=== PATIENT | female | born 1965 | race Caucasian/White ===

== ENCOUNTER 2017-06-09 14:30 | Inpatient (IN) ==
--- NOTE | 2017-06-09 15:05 | CT Report ---
CT abdomen pelvis wo con Indication: Kidney pain for months. Comparison: None. Technique: CT of the abdomen and pelvis was performed without administration of intravenous contrast. The CT examination was performed using one or more of the following dose reduction techniques: Automatic exposure control, adjustment of the mA and kV according to patient size, use of acute or iterative reconstruction techniques. Findings: Complete evaluation of solid organs, vascular structures, and bowel wall is not possible secondary to lack of intravenous contrast. Lower chest: No acute findings are noted within the lower chest. Liver: The liver demonstrates no evidence of focal hepatic mass or evidence of acute pathology. Gallbladder: Speckled foci of increased attenuation throughout the lumen of the gallbladder suggests partially calcified gallstones. No findings are present to suggest acute cholecystitis. Spleen: Spleen demonstrates no significant abnormality. Pancreas: Pancreas demonstrates no significant abnormality. Adrenal glands: The adrenal glands demonstrate no significant abnormalities. Kidneys: Kidneys demonstrate no significant abnormality. Aorta: The noncontrast enhanced appearance of the aorta is unremarkable. Inferior vena cava: Inferior vena cava is normal in appearance. Lymph nodes: Enlarged inguinal lymph nodes are noted bilaterally. Additionally, few sidewall nodes of the pelvis appear borderline in size to minimally enlarged measuring up to 8 to 9 mm in short axis dimension. Stomach and bowel: Stomach, duodenum, and small bowel demonstrate no specific abnormality. The appendix is normal. The sigmoid colon demonstrates wall thickening in the lower pelvis with a moderately large amount of periserosal fat stranding associated. His particular region of bowel is difficult to fully evaluate secondary to lack of intravenous contrast and there is a suggested mass within the pelvis possibly along the posterior wall of sigmoid colon. This is estimated to measure 7.3 cm in AP dimension, 6.3 cm in transverse dimension, and up to 6.5 cm in craniocaudal dimension. This appears to efface the superior wall of the bladder. Extensive inflammatory stranding extends into the anterior rectus musculature. Small bubbles of air are noted interposed between the rectus muscles in the region of contrast stasis and herniation of fat. Its difficult to ascertain whether this represents nonopacified loops of bowel versus other entity such as possible abscess or perforation. Intrapelvic contents: The urinary bladder is decompressed and exhibits mass effect from the above described possible mass versus phlegmon or enlargement of the bowel. Osseous structures: The imaged osseous structures of the lumbar spine, pelvis, and proximal femurs demonstrate no acute findings. Soft tissues and musculature: In addition to the diastases of the abdominal wall musculature as detailed above, there is fat stranding along the anterior margin of each rectus muscle and the left rectus muscle is enlarged and thickened measuring up to 3.2 cm in AP dimension. Impression: 1. An aggressive process is demonstrated within the lower abdomen/upper pelvis in close proximity to the sigmoid colon. There appears to be periserosal fat stranding as well as possible solid mass or phlegmon in the region of the lower sigmoid colon. This suggested area of mass effect effaces the superior margin of the urinary bladder. Bladder wall thickening additionally is not excluded. Extensive fat stranding as well as thickening of the left rectus musculature is present. Some small bubbles of air present within the diastases of the abdominal wall and is difficult to ascertain whether this represents nonopacified bowel loops or whether this represents possible extraluminal/free intraperitoneal air. Differential considerations for the appearance of this region could include acute diverticulitis with phlegmon/abscess formation and involvement of the rectus musculature, as well as neoplasm. Bowel perforation cannot be excluded. Evaluation is significantly limited by lack of intravenous and oral contrast. Repeat study utilizing intravenous contrast, also allowing appropriate time for contrast to traverse large bowel is recommended. Alternatively, rectal contrast could be administered in addition to IV contrast. 06/09/2017 2:56 PM PROCEDURE INTERPRETED AT [facility] DEPARTMENT OF RADIOLOGY Final Report Signed by: Dr. Ray Hawkins
[2017-06-09] MEDS ORDERED: SODIUM CHLORIDE 0.9% 500 ML IV STA (15:29)
--- NOTE | 2017-06-09 15:36 | Emergency Department Note ---
More Kraus Hilary, am scribing for, and in the presence of, Chris Jaramillo MD 15:31. Ella Kraus Phillip K, MD, personally performed the services described in this documentation, ascribed by Belia Aguero in my presence, and it is both accurate and complete 536 . Arrival - Arrival Chief Complaint: Non-Specific Stated Complaint: sent by dr. whipple. kidney scan ED Nursing Triage Note: Pt c/o "kidney Pain" for months now and had a U/S yesterday. States she was told by Dr Whipple to come into the ER for a CT scan. Mode of Arrival: Ambulatory Limitations: No Limitations Source: Patient, RN Notes Reviewed Time Seen by Provider: 06/09/17 15:19 - History of Present Illness HPI Narrative: Pt is a 51 y/o female presenting to the ED with c/o kidney pain which onset weeks ago. She reports having an US yesterday and was told by Dr. Whipple to come to the ED for a CT scan. Pt confirms lower abdominal pain, nausea and blood in her bowels for 2-3 days which is resolved now but denies vomiting. No other complaints or problems stated in the ED. patient also reports a 35 pound weight loss over the last year. Her last bowel movement was Wednesday. Patient also reports some blood in her bowel movement for 2-3 days which is since resolved. She was noted to have a small amount of hydronephrosis on the left breast sonogram yesterday was referred here for a CAT scan which showed a large mass around the sigmoid colon. This mass does efface the bladder. Patient did have fever one day over the last 2 weeks but denies any recently. Patient has never had a colonoscope. Past medical history is unremarkable Onset (ago): week(s) Consistency: constant Severity: mild Severity scale (1-10): 1 Quality: sharp Allergies/Adverse Reactions: Allergies Allergy/AdvReac Type Severity Reaction Status Date / Time phenazopyridine Allergy RASH Verified 06/09/17 14:32 [From Pyridium] Home Medications: Home Medications Medication Instructions Recorded Confirmed Type Amoxicillin/Potassium Clav [Amox 1 each PO BID W/MEALS 06/09/17 06/09/17 History Tr-K Clv 500-125 mg Tab] Ferrous Sulfate Tab [Feosol 325 mg PO DAILY 06/09/17 06/09/17 History Original Tab] Lactobacillus Acidophilus 1 each PO DAILY 06/09/17 06/09/17 History [Acidophilus Lactobacilli] Oxybutynin Xl [Ditropan Xl] 10 mg PO DAILY 06/09/17 06/09/17 History Review of System - Review of System 12 point system: reviewed and no additional remarkable complaints except as stated - Review of System Constitutional: Present: weight loss. Absent: fever Gastrointestinal: Present: abdominal pain, hematochezia Medical,Surgical,& Family Hx - Social History Smoking Status: Never smoker Exam Vital Signs: Vital Signs Temperature 97.2 F L 06/09/17 14:30 Pulse Rate 94 H 06/09/17 14:30 Respiratory Rate 16 06/09/17 14:30 Blood Pressure 180/99 06/09/17 14:30 O2 Sat by Pulse Oximetry 96 06/09/17 14:30 - General General appearance: alert, in no apparent distress - Head Head exam: Present: atraumatic, normocephalic - Eye Eye exam: Present: normal appearance, PERRL, EOMI - ENT ENT exam: Present: mucous membranes moist, TM's normal bilaterally. Absent: mucous membranes dry - Neck Neck exam: Present: full ROM, trachea midline. Absent: tenderness - Chest Chest inspection: Present: symmetric chest wall rise. Absent: tenderness - Respiratory Respiratory exam: Present: normal lung sounds bilaterally. Absent: respiratory distress - Cardiovascular Cardiovascular exam: Present: regular rate, normal rhythm, normal heart sounds. Absent: murmur, rubs, gallop - Abdominal Exam Abdominal exam: Present: soft, tenderness (LLQ ), hypoactive bowel sounds, mass (Left lower quadrant). Absent: distention - Rectal Exam Rectal exam: Present: heme (-) stool. Absent: mass - Extremities Exam Extremities exam: Present: full ROM. Absent: tenderness, pedal edema - Back Exam Back exam: Present: full ROM. Absent: tenderness - Neurological Exam Neurological exam: Present: alert, oriented X3, CN II-XII intact. Absent: motor sensory deficit - Psychiatric Psychiatric exam: Present: normal affect, normal mood - Skin Skin exam: Present: warm, dry, intact, normal color. Absent: rash Results - Labs Lab Results: I have reviewed the patients labs (Labs are presently pending) - Diagnostic Findings Procedure: CT Abdomen and Pelvis: report reviewed by me (1. An aggressive process is demonstrated within the lower abdomen/upper pelvis in close proximity to the sigmoid colon. There appears to be periserosal fat stranding as well as possible solid mass or phlegmon in the region of the lower sigmoid colon. This suggested area of mass effect effaces cole superior margin of the urinary bladder. Bladder wall thickening of the left rectus musculature is present. Some small bubbles of air present within the diastases of the abdominal wall and is difficult to ascertain whether this represents nonopacified bowel loops or whether this represents possible extraluminal/free intraperitoneal air. Differential considerations for the appearance of this region could include acute diverticulitis with phlegmon/abscess formation and involvement of the rectus musculature, as well as neoplasm. Bowel perforation cannot be excluded. Evaluation is significantly limited by lack of intravenous and oral contrast. ) Disposition Clinical Impression: Abdominal mass, left lower quadrant, Weight loss Case discussed with: patient, patient's family Disposition: Still a Patient Condition: Guarded Additional Instructions: Admit to the hospitalist.
--- NOTE | 2017-06-09 15:54 | XRay Report ---
XR chest 1V portable Indication: Abdominal pain Comparison: None. Technique: Portable AP chest was performed. Findings: Heart size is normal. Pulmonary vasculature appears within normal limits. No significant abnormality of the mediastinal contours demonstrated. Lungs are clear. Bones and soft tissues demonstrate no significant abnormalities. Impression: 1. No evidence of acute pathology. 06/09/2017 3:51 PM PROCEDURE INTERPRETED AT [facility] DEPARTMENT OF RADIOLOGY Final Report Signed by: Dr. Ray Hawkins
--- NOTE | 2017-06-09 15:56 | EKG Report ---
Stationary ECG Study [facility] ER Test Date: 06/09/2017 3:54 PM Pat Name: ADRIAN GARCIA Department: Room: Gender: F Sales Marketing Director: : 1965 Requested by: Chris Egan Order Number: [id number] Reading MD: ROLANDO MARIE Intervals [place] Rate: 96 P: 40 AK: 140 QRS: 83 QRSD: 109 T: 49 QT: 362 QTc: 416 Interpretive Statements SINUS RHYTHM RIGHT AXIS DEVIATION Electronically Signed On 06-09-17 17:04:39 CDT by ROLANDO MARIE [email or web address]
[2017-06-09 15:58] LABS: Basophils # 0.1 10*3/uL (0.0-0.2); Basophils % 0.5 % (0.0-0.8); Eosinophils # 0.1 10*3/uL (0.0-0.87); Eosinophils % 0.9 % (0.00-10.9); Hematocrit 34.9 VOL% (35.7-47.0); Hemoglobin 11.1 GM/DL (12.0-16.0); Immature Granulocytes % 0.4 %; Immature Granulocytes Absolute 0.05 #; Lymphocytes # 2.8 10*3/uL (1.4-4.0); Lymphocytes % 22.4 % (21.3-54.2); Mean Corpuscular HGB Conc 31.8 GM/DL (32-36); Mean Corpuscular Hemoglobin 24 PG (27-34); Mean Corpuscular Volume 75.4 FL (87-102); Mean Platelet Volume 8.9 FL (9.6-12.0); Monocytes # 1.3 10*3/uL (0.11-0.8); Monocytes % 10.1 % (1.7-12.7); Neutrophils # 8.1 10*3/uL (1.4-7.4); Neutrophils % 65.7 % (38.7-73.9); Platelet Count 458 T/CUMM (130-400); Red Blood Count 4.63 MC/CUMM (3.8-5.5); Red Cell Distribution Width 14.7 % (9.3-17.3); White Blood Count 12.3 T/CUMM (4-12)
[2017-06-09 16:11] LABS: Bilirubin,Urine Negative (Negative); Blood, Urine Large mg/dL (Negative); Glucose,Urine (UA) Negative (Negative); Ketones,Urine Negative (Negative); Nitrite,Urine Negative (Negative); Protein,Urine 100 MG/DL; RBC,Urine 48 /HPF (0-4); Squamous Epithelial Cell,Urine Occasional /HPF (0-10); Urine Color Yellow (Yellow); Urine Specific Gravity 1.005 (1.001-1.035); WBC,Urine 1387 /HPF (0-6)
[2017-06-09 16:12] LABS: Apearance,Urine CLOUDY (Clear); Urine Urobilinogen 0.2 EU/DL (0.2-1.0)
[2017-06-09 16:30] LABS: Alanine Aminotransferase 18 U/L (13-56); Albumin 2.6 G/DL (3.4-5.0); Alkaline Phosphatase 69 U/L (45-117); Aspartate Amino Transferase 12 U/L (0-37); Bilirubin,Total < 0.39 MG/DL (0.2-1.0); Blood Urea Nitrogen 6 MG/DL (7-18); Glucose 151 MG/DL (74-106); Magnesium 2.1 MG/DL (1.8-2.4); Potassium 3.2 MMOL/L (3.5-5.1); Sodium 136 MMOL/L (136-145); Total Protein 7.7 G/DL (6.4-8.3)
--- NOTE | 2017-06-09 16:42 | Hospitalist History & Physical ---
<Jhonathan Peraza - Last Filed: 06/09/17 16:54> Assessment and Plan (1) Left lower quadrant abdominal mass Status: Acute Assessment and plan: Admit to med surg. IV fluids. prn pain meds. Consult GI to evaluate ( diverticulitis vs neoplasm). Consult surgery. Current Visit: Yes (2) Urinary tract infection Status: Acute Assessment and plan: IVF. Start IV antibotics empirically. Await culture. Current Visit: Yes (3) Weight loss Status: Acute Assessment and plan: Consult nutrition. Weight loss possibly secondary to mass. Current Visit: Yes History of Present Illness Chief complaint: abdominal pain / referral from Dr. Echevarria History of present illness: Ms. Luevano is a 51 year old white female w that presents to the ED today as a referral from Dr. Echevarria's office. Pt. saw Dr. Echevarria in clinic for abdominal pain and underwent an US that revealed 'mild dilation of the left renal pelvis could represent mild hydronephrosis'. Pt. was sent over for further evaluation. She is accompanied by her fiance' who is present at the bedside. Pt. states that for the last 2 weeks she has experienced kidney pain. She reports a fever with chills, associating nausea but no vomiting. She denies chest pain, shortness of breath, cough, weakness, or night sweats. She states that she has been having discharge similar to "skin" during urination with blood present. She also reported a few episodes of blood during the urine. Pt. additionally adds that she has lost 15 lbs in 3 months and 35 lb weight loss over 1 yr. Pt. denies ever having a colonoscopy. CT scan today revealed a large mass around the sigmoid colon that effaces the bladder. Labs revealed WBC of 12.3, h&h 11.1 and 34.9, and UA revealed a UTI. Pt's case has been discussed with Dr. Jaramillo and Dr. Rubio. Pt. will be admitted to the hospitalist service for further evaluation and treatment. Home meds have been reconciled and review. Home Medications Medication Instructions Recorded Confirmed Type Amoxicillin/Potassium Clav [Amox 1 each PO BID W/MEALS 06/09/17 06/09/17 History Tr-K Clv 500-125 mg Tab] Ferrous Sulfate Tab [Feosol 325 mg PO DAILY 06/09/17 06/09/17 History Original Tab] Lactobacillus Acidophilus 1 each PO DAILY 06/09/17 06/09/17 History [Acidophilus Lactobacilli] Oxybutynin Xl [Ditropan Xl] 10 mg PO DAILY 06/09/17 06/09/17 History Allergies Allergy/AdvReac Type Severity Reaction Status Date / Time phenazopyridine Allergy RASH Verified 06/09/17 14:32 [From Pyridium] Medical,Surgical,& Family Hx - Family History Family History: Reports;: Family Cancer (colon/brain), Family Stroke - Social History Smoking Status: Never smoker Have you smoked in the last 12 months: No Frequency of Alcohol Use: None Type of Drug Use: None Marital Status: Lives With:: Significant Other Functional capacity: independent ambulation - Constitutional Constitutional: Present: chills, fever(s), weight loss (35 lbs in one yr). Absent: night sweats - EENT Eyes: Present: requires corrective lense. Absent: blurry vision Ears: Absent: decreased hearing Nose, mouth and throat: Absent: headache(s) - Cardiovascular Cardiovascular: Absent: dyspnea on exertion, edema - Respiratory Respiratory: Absent: dyspnea - Gastrointestinal Gastrointestinal: Present: abdominal pain, nausea. Absent: vomiting - Genitourinary Genitourinary: Present: hematuria, vaginal discharge ("similar to skin") - Musculoskeletal Musculoskeletal: Absent: back pain - Neurological Neurological: Absent: confusion, dizziness - Psychiatric Psychiatric: Absent: anxiety, depression Exam - Constitutional Vitals: Period Temp Pulse Resp BP Sys/Ng Pulse Ox Last 24 Hr 97.2 F-97.2 F 94-94 16-16 180-180/99-99 96 General appearance: no acute distress, over weight - Head Head exam: Present: normal inspection, normocephalic - Eye Eye exam: Present: EOMI Pupils: Present: MERRY - ENT ENT exam: Present: normal exam - Neck Neck exam: Present: normal inspection - Respiratory Respiratory exam: Present: clear to auscultation bilaterally. Absent: wheezes - Cardiovascular Cardiovascular exam: Present: tachycardia - GI/Abdominal GI/Abdominal exam: Present: normal bowel sounds, soft. Absent: tenderness - Extremities Exam Extremities exam: Present: normal capillary refill, full ROM. Absent: edema - Back Exam Back exam: Present: normal inspection - Neurological Exam Neurological exam: Present: alert, oriented X3 - Psychiatric Psychiatric exam: Present: normal affect, normal mood - Skin Skin exam: Present: normal color, warm, dry Results - Labs CBC & BMP: 06/09/17 15:36 06/09/17 15:36 Lab Results: I have reviewed the past 24 hour labs <Joby Rubio - Last Filed: 06/09/17 18:57> History of Present Illness History of present illness: Ms. Luevano is a 51 year old female Exam - Constitutional Vitals: Period Temp Pulse Resp BP Sys/Ng Pulse Ox Last 24 Hr 97.2 F-99.1 F 91-101 16-20 147-180/89-99 96-98 Results - Labs CBC & BMP: 06/09/17 15:36 06/09/17 15:36 - Impressions Patient seen and examined. I have reviewed the H&P by ROLAN Peraza, and I agree with the documentation. Briefly, patient is a 51 yo pleasant female who presents to the ED as a referral from Dr. Echevarria's office. US was done, and it showed possible hydronephrosis. Patient states that she has been having crampy intermittent LLQ pain for the past 2 weeks along with accompanying nasuea, decreased PO intake, and fevers of 100 degrees. She also notes some bloody stools last week but denies any melena or constipation. Abdominal pain is not associated with movement/urination/defecation/eating. She endorses an unintentional weight loss of 15 pounds in the past 3 months. She has not had a colonoscopy. She notes some diarrhea for the past 2 days. She attributes it to the use with augmentin. She states that she is being treated for a UTI. Main symptoms are urinary frequency and hematuria. She states that several weeks ago, she was treated with bactrim. Vitals reviewed. BP is elevated. Abdominal exam is unremarkable. CVA tenderness is absent. Labs reviewed. CTAP without contrast shows possible sigmoid mass with bladder involvement. Active Issues: 1. Acute LLQ pain 2. Possible sigmoid mass 3. Leukocytosis, likely 2nd to UTI 4. Possible UA: will treat for UTI 5. Microcytosis, mild 6. Hypokalemia 7. Bloody stools 8. Elevated blood pressure: patient denies history of HTN Plan: repeat CTAP with contrast; agree with consulting GI and surgery; treat for possible UTI; obtain iron studies/tsh/b12/replete K and monitor/PPI/DVT prophalaxis. Plan of care may be modified as more information becomes available.
[2017-06-09] MEDS ORDERED: DOCUSATE SODIUM 100 MG CAPSULE PO PRN (17:45)
[2017-06-09] MEDS: SODIUM CHLORIDE 0.9% 1,000 ML IV SCH (18:12)
[2017-06-09] MEDS: cefTRIAXone 1,000 MG in SODIUM CHLORIDE 0.9% 100 ML IV SCH (18:21)
[2017-06-09] MEDS: POTASSIUM CHLORIDE 20 MEQ TABLET PO PRN ×3 (18:22→23:34)
--- NOTE | 2017-06-09 21:10 | General Surgery Consult Note ---
Assessment and Plan (1) Left lower quadrant abdominal mass Status: Acute Assessment and plan: This likely represents diverticulitis. It is difficult to discern without CT with contrast whether there is any mass features or just phlegmon and diverticulitis. The patient has never had a colonoscopy. She does not have any significant family history of colon cancer. A CT scan with contrast would certainly be helpful to confirm the diagnosis. The patient has pneumaturia and recurrent urinary tract infections are concerning for the possibility of colovesicular fistula. I will add Flagyl to her antibiotic regimen and continue to follow her in the hospital and follow-up the results of her CT scan tomorrow. Current Visit: Yes History of Present Illness Chief complaint: Abdominal pain History of present illness: Ms. Luevano is a 51 year old female who presents to the hospital with left lower quadrant abdominal pain for 2 weeks that has been coming and going. She denies any history of diverticulitis and thought she was having a kidney stone. She reports recurrent urinary tract infections and pneumaturia for the past week. She also states that her urine turned very dark at times intermittently. She has had a hysterectomy in the past. She feels much better since being admitted to the ER. She had a leukocytosis around 12,[address] scan which was a noncontrasted study showed significant inflammatory changes in the area of the sigmoid colon extending into a ventral hernia defect with some air bubbles that appear to be outside of the colon. There is no massive free air. Again the patient feels much better after initial treatment in the ER and the floor. She is on Rocephin Home Medications Medication Instructions Recorded Confirmed Type Amoxicillin/Potassium Clav [Amox 1 each PO BID W/MEALS 06/09/17 06/09/17 History Tr-K Clv 500-125 mg Tab] Ferrous Sulfate Tab [Feosol 325 mg PO DAILY 06/09/17 06/09/17 History Original Tab] Lactobacillus Acidophilus 1 each PO DAILY 06/09/17 06/09/17 History [Acidophilus Lactobacilli] Oxybutynin Xl [Ditropan Xl] 10 mg PO DAILY 06/09/17 06/09/17 History Allergies Allergy/AdvReac Type Severity Reaction Status Date / Time phenazopyridine Allergy RASH Verified 06/09/17 14:32 [From Pyridium] Medical,Surgical,& Family Hx - Medical History Psychological: No history of: Anxiety Disorders, ADHD, Behavior Problems, Bipolar Disorder, Depression, Previous Suicide Attempt, Psychiatric/Substance Abuse Tx, Schizophrenia, Violent Behavior, Psychiatric Problems Genitourinary: History of: Kidney Stones, Problems (urinary frequency) - Family History Family History: Reports;: Family Cancer (colon/brain), Family Stroke - Social History Smoking Status: Never smoker Frequency of Alcohol Use: None Type of Drug Use: None - Constitutional Constitutional: Present: as per HPI - EENT Nose, mouth and throat: Present: as per HPI - Cardiovascular Cardiovascular: Present: as per HPI - Respiratory Respiratory: Present: as per HPI - Gastrointestinal Gastrointestinal: Present: as per HPI - Genitourinary Genitourinary: Present: as per HPI - Musculoskeletal Musculoskeletal: Present: as per HPI - Neurological Neurological: Present: as per HPI - Endocrine Endocrine: Present: as per HPI Hematologic/Lymphatic: Present: as per HPI Exam - Constitutional Vitals: Period Temp Pulse Resp BP Sys/Ng Pulse Ox Last 24 Hr 97.2 F-99.1 F 86-101 16-20 146-180/82-99 94-98 General appearance: no acute distress, over weight - Head Head exam: Present: normal inspection, normocephalic - Eye Eye exam: Present: EOMI. Absent: scleral icterus Pupils: Present: MERRY - ENT ENT exam: Present: normal exam Mouth exam: Present: normal external inspection, normal voice - Neck Neck exam: Present: normal inspection, trachea midline - Respiratory Respiratory exam: Present: clear to auscultation bilaterally. Absent: accessory muscle use, chest wall tenderness - Cardiovascular Cardiovascular exam: Present: RRR. Absent: systolic murmur, tachycardia - GI/Abdominal GI/Abdominal exam: Present: mass (There is a palpable presumed intra-abdominal mass in the left lower quadrant suprapubic area.), tenderness (There is tenderness in the left lower quadrant and suprapubic region. No overlying skin changes.), soft. Absent: rebound - Extremities Exam Extremities exam: Present: normal inspection, normal capillary refill - Back Exam Back exam: Present: normal inspection - Neurological Exam Neurological exam: Present: alert, oriented X3 Speech: Present: normal - Skin Skin exam: Present: normal color, warm Results - Labs CBC & BMP: 06/09/17 15:36 06/09/17 15:36
[2017-06-09] MEDS: metroNIDAZOLE INJ 500 MG in PREMIX 1 EACH IV SCH (21:29)
[2017-06-09] MEDS ORDERED: FLUCONAZOLE 150 MG TABLET PO ONE (22:53)
[2017-06-09] MEDS: MICONAZOLE 2% VAG CREAM 45 GM TUBE VAG SCH (23:59)
[2017-06-10] MEDS: POTASSIUM CHLORIDE 20 MEQ TABLET PO PRN (01:56)
[2017-06-10] MEDS: ONDANSETRON 4 MG/2 ML VIAL IV PRN (03:49)
[2017-06-10] MEDS: metroNIDAZOLE INJ 500 MG in PREMIX 1 EACH IV SCH ×3 (04:30→20:51)
--- NOTE | 2017-06-10 06:42 | General Surgery Progress Note ---
Assessment and Plan (1) Left lower quadrant abdominal mass Status: Acute Assessment and plan: Patient continues to do well. Follow-up CT scan today Current Visit: Yes Subjective Patient reports: Present: no new complaints, feels better, diarrhea, afebrile. Absent: blood in stool Exam - Constitutional Vitals: Period Temp Pulse Resp BP Sys/Ng Pulse Ox Last 24 Hr 97.2 F-99.1 F 85-110 16-20 132-180/72-107 94-98 General appearance: no acute distress, over weight - Head Head exam: Present: normal inspection, normocephalic - Eye Eye exam: Present: EOMI Pupils: Present: MERRY - ENT ENT exam: Present: normal exam Mouth exam: Present: normal external inspection, normal voice - Neck Neck exam: Present: normal inspection, trachea midline - Respiratory Respiratory exam: Present: clear to auscultation bilaterally, accessory muscle use. Absent: chest wall tenderness - Cardiovascular Cardiovascular exam: Present: RRR. Absent: systolic murmur, tachycardia - GI/Abdominal GI/Abdominal exam: Present: normal bowel sounds, mass, soft. Absent: tenderness , rebound - Extremities Exam Extremities exam: Present: normal inspection, normal capillary refill - Back Exam Back exam: Present: normal inspection - Neurological Exam Neurological exam: Present: alert, oriented X3 Speech: Present: normal - Skin Skin exam: Present: normal color, warm Results - Labs CBC & BMP: 06/09/17 15:36 06/09/17 15:36
[2017-06-10 07:06] LABS: Basophils # 0.1 10*3/uL (0.0-0.2); Basophils % 0.5 % (0.0-0.8); Eosinophils # 0.1 10*3/uL (0.0-0.87); Eosinophils % 0.9 % (0.00-10.9); Hematocrit 31.5 VOL% (35.7-47.0); Hemoglobin 9.9 GM/DL (12.0-16.0); Immature Granulocytes % 0.6 %; Immature Granulocytes Absolute 0.07 #; Lymphocytes # 2.1 10*3/uL (1.4-4.0); Lymphocytes % 18.2 % (21.3-54.2); Mean Corpuscular HGB Conc 31.4 GM/DL (32-36); Mean Corpuscular Hemoglobin 24 PG (27-34); Mean Corpuscular Volume 76.6 FL (87-102); Mean Platelet Volume 9.2 FL (9.6-12.0); Monocytes # 1.2 10*3/uL (0.11-0.8); Monocytes % 10.6 % (1.7-12.7); Neutrophils # 7.9 10*3/uL (1.4-7.4); Neutrophils % 69.2 % (38.7-73.9); Platelet Count 423 T/CUMM (130-400); Red Blood Count 4.11 MC/CUMM (3.8-5.5); Red Cell Distribution Width 14.9 % (9.3-17.3); White Blood Count 11.4 T/CUMM (4-12)
[2017-06-10 07:36] LABS: % Iron Saturation 9.5 % (18-50)
[2017-06-10 07:47] LABS: Albumin 2.2 G/DL (3.4-5.0); Bilirubin,Total 0.8 MG/DL (0.2-1.0); Calcium 7.7 MG/DL (8.5-10.1); Magnesium 2.1 MG/DL (1.8-2.4); Osmolality,Calculated 277.3 MOS/KG (273-304); Potassium 4.3 MMOL/L (3.5-5.1); Risk Ratio 3.27; Thyroid Stimulating Hormone 1.39 uIU/ml (0.358-3.74); VLDL CHOLESTEROL 13.8 MG/DL
--- NOTE | 2017-06-10 09:33 | Gastrointestinal Consult Note ---
Assessment and Plan (1) Left lower quadrant abdominal mass Status: Acute Assessment and plan: 06/11-LLQ abd pain with reports of hematochezia and wt loss over the last year, with findings on noncontrasted CT of mass in sigmoid colon as noted below. Hx of MARCIAL with HH . Repeat CT of abdomen is pending today. Plan and addendum to follow by DR Wolff. Current Visit: Yes History of Present Illness Chief complaint: Abdominal pain History of present illness: Ms. Luevano is a 51 year old female who was admitted to the hospital on yesterday with onset of severe abdominal pain. Patient states that she was in her usual state of health until yesterday when she had an episode of left lower quadrant abdominal pain that was severe in nature. She states that the pain was not associated with any other factors and she has had the pain in the past but not to the extent of the severity. Patient states that she has had a UTI and has been being treated for this however the pain she was experiencing now was different than her urinary pain she was experiencing. She went to see Dr. Echevarria and at that time she had an ultrasound which showed mild dilation of her left renal pelvis with possible mild hydronephrosis and was sent to our facility for further evaluation. Patient states that she has ran fever off and on over the last several days but denies any other associated symptoms. She does recall passing some blood in her urine and states that she has lost approximately 35 pounds over the last year. Pt states that she has passed some bright red blood over the last couple of weeks on three occasions with a bowel movement but states she didnt "pay any mind to this". She also complains of some dyspepsia and GERD symptoms not controlled with her Pepcid. Upon admission , she had a CT of the abdomen done without contrast, which showed possible solid mass in the lower sigmoid colon with wall thickening and periserosal fat stranding, at 7.3cm , effacing the superior wall of the bladder. She did have mild leukocytosis on admission now resolved. HH on admission was noted at now down at 9.9/31.5. She does have a history of MARCIAL and takes iron supplements for this. She also currently still has a UTI with culture pending. She has no history of endoscopy in the past. She states her grandmother did pass from colon cancer but denies any other family history. CT of abdomen has been repeated today however results are pending. Home Medications Medication Instructions Recorded Confirmed Type Amoxicillin/Potassium Clav [Amox 1 each PO BID W/MEALS 06/09/17 06/09/17 History Tr-K Clv 500-125 mg Tab] Ferrous Sulfate Tab [Feosol 325 mg PO DAILY 06/09/17 06/09/17 History Original Tab] Lactobacillus Acidophilus 1 each PO DAILY 06/09/17 06/09/17 History [Acidophilus Lactobacilli] Oxybutynin Xl [Ditropan Xl] 10 mg PO DAILY 06/09/17 06/09/17 History Allergies Allergy/AdvReac Type Severity Reaction Status Date / Time phenazopyridine Allergy RASH Verified 06/09/17 14:32 [From Pyridium] Medical,Surgical,& Family Hx - Medical History Psychological: No history of: Anxiety Disorders, ADHD, Behavior Problems, Bipolar Disorder, Depression, Previous Suicide Attempt, Psychiatric/Substance Abuse Tx, Schizophrenia, Violent Behavior, Psychiatric Problems Genitourinary: History of: Kidney Stones, Problems (urinary frequency) - Family History Family History: Reports;: Family Cancer (colon/brain), Family Stroke - Social History Smoking Status: Never smoker Frequency of Alcohol Use: None Type of Drug Use: None 12 point system: reviewed and no additional remarkable complaints except as stated - Constitutional Constitutional: Present: as per HPI, weight loss - EENT Eyes: Present: as per HPI Ears: Present: as per HPI Nose, mouth and throat: Present: as per HPI - Cardiovascular Cardiovascular: Present: as per HPI - Respiratory Respiratory: Present: as per HPI - Gastrointestinal Gastrointestinal: Present: as per HPI, abdominal pain, hematochezia - Genitourinary Genitourinary: Present: as per HPI - Musculoskeletal Musculoskeletal: Present: as per HPI - Neurological Neurological: Present: as per HPI - Psychiatric Psychiatric: Present: as per HPI - Endocrine Endocrine: Present: as per HPI - Hematologic/Lymphatic Hematologic/Lymphatic: Present: as per HPI Exam - Constitutional Vitals: Period Temp Pulse Resp BP Sys/Ng Pulse Ox Last 24 Hr 97.2 F-99.1 F 85-110 16-20 132-180/72-107 94-98 General appearance: normal weight, no acute distress - Head Head exam: Present: normal inspection, normocephalic - Eye Eye exam: Present: other (lids and conjunctiva unremarkable). Absent: scleral icterus - ENT ENT exam: Present: normal exam, normal oropharynx - Neck Neck exam: Present: normal inspection - Respiratory Respiratory exam: Present: clear to auscultation bilaterally. Absent: rales, rhonchi, wheezes - Cardiovascular Cardiovascular exam: Present: regular rate and rhythm. Absent: diastolic murmur , JVD, systolic murmur - GI/Abdominal GI/Abdominal exam: Present: normal bowel sounds, soft. Absent: ascites, distended, mass, organomegaly, tenderness - Extremities Exam Extremities exam: Present: normal inspection, full ROM - Back Exam Back exam: Present: normal inspection - Neurological Exam Neurological exam: Present: alert, oriented X3 - Psychiatric Psychiatric exam: Present: normal affect, normal mood - Skin Skin exam: Present: normal color, warm, dry Results - Labs CBC & BMP: 06/10/17 05:25 06/10/17 05:25 Lab Results: I have reviewed the past 24 hour labs - Diagnostic Findings Procedure: CT Abdomen and Pelvis: report reviewed by me
[2017-06-10] MEDS: PANTOPRAZOLE 40 MG VIAL IV SCH (09:53)
[2017-06-10] MEDS: OXYBUTYNIN XL 10 MG TABLET PO SCH (09:53)
--- NOTE | 2017-06-10 10:36 | CT Report ---
Referring physician: James Orourke MD EXAM: CT abdomen and pelvis without contrast DATE: 06/10/2017 COMPARISON: 06/09/2017 REASON: Sigmoid mass TECHNIQUE: Axial images of the abdomen and pelvis were obtained without the use of contrast. Patient was given rectal contrast. Coronal and sagittal reformatted images were also provided. Total DLP is 2036.40 mGy*cm. FINDINGS: Atelectasis at the lung bases with cardiomegaly and cardiac fat pads. The liver is normal in size with no obvious masses on these noncontrast scans. No dilated ducts. The gallbladder is contracted with small hyperdensities. The spleen, pancreas, adrenal glands, and kidneys are stable in appearance. The abdominal aorta is normal in size with no change in the size of the adjacent nodes. No significant dilatation of the small bowel. Larger 88 mm fat-containing left pelvic ventral wall hernia with the small bowel extending of the neck of the finding. . Large irregular poorly defined sigmoid colon mass. The mass effect measures at least 101 x 89 x 67 mm. Contrast extends inferiorly from the mass with fistulous communication with the urinary bladder which contains minimal contrast. It is really difficult to exclude additional communication with adjacent small bowel and the residual air-containing abnormality in the anterior pelvis which measures 109 x 71 x 47 mm. This finding involves the rectus muscle. Stable pelvic lymphadenopathy. Apparent prior hysterectomy. 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 Also there is possible fistulous communication with inflammatory masslike finding throughout the anterior pelvis. There is extraluminal air within this finding. It is is difficult to separate this finding from an adjacent nondilated loop of small bowel. Persistent ascites and lymphadenopathy with reported hysterectomy. Larger left pelvic ventral wall hernia with cholelithiasis. These findings were discussed with Dr. Orourke at 10:25 AM on 06/10/2017. The CT exam was performed using one or more of the following dose reduction techniques: Automated exposure control and adjustment of the mA and/or kV according to patient size. PROCEDURE INTERPRETED AT [facility] DEPARTMENT OF RADIOLOGY Final Report Signed by: Dr. Elizabeth Badillo
[2017-06-10] MEDS: SODIUM CHLORIDE 0.9% 1,000 ML IV SCH ×2 (11:36→20:51)
[2017-06-10] MEDS: ALPRAZolam 0.5 MG TABLET PO SCH ×2 (16:24→20:52)
--- NOTE | 2017-06-10 16:47 | Hospitalist Progress Note ---
Hospitalist: Subjective Interval history: 51-year-old white female who was admitted with abdominal pain. CT scan of the abdomen pelvis showed large sigmoid mass. Abdominal pain is better. Exam - Constitutional Vitals: Period Temp Pulse Resp BP Sys/Ng Pulse Ox Last 24 Hr 97.5 F-99.1 F 85-110 16-20 132-166/71-107 92-98 Exam: General: [No Acute Distress] HEENT: [Normocephalic, atraumatic, Extra ocular movements intact] Neck: [Supple, No JVD] Chest: [Clear to auscultation B/L] CV: [S1 + S2 audible without murmur, gallop or rub] Abd: [Obese, soft, NT, BS +] Ext: [No edema] Skin: [No purpura, bruising or rash] Rheumatologic: [No Joint deformities] Neurologic: [Strength 5/5 all extremities, no gross sensory deficits] Results - Labs CBC & BMP: 06/10/17 05:25 06/10/17 08:52 - Impressions Large sigmoid mass with colovesical fistula Status: Acute Assessment and plan: Appreciate general surgery and GI following. She reports no previous colonoscopy. Current Visit: Yes Anxiety disorder and panic attacks Status: Acute Assessment and plan: Continue Xanax Current Visit: Yes
[2017-06-10] MEDS ORDERED: POLYETHYLENE GLYCOL POWDER 255 GM BOTTLE PO ONE (18:00)
[2017-06-10] MEDS: cefTRIAXone 1,000 MG in SODIUM CHLORIDE 0.9% 100 ML IV SCH (18:27)
[2017-06-10] MEDS: MICONAZOLE 2% VAG CREAM 45 GM TUBE VAG SCH (20:51)
[2017-06-11 05:18] LABS: Basophils # 0.1 10*3/uL (0.0-0.2); Basophils % 0.6 % (0.0-0.8); Eosinophils # 0.2 10*3/uL (0.0-0.87); Eosinophils % 1.6 % (0.00-10.9); Hematocrit 33.5 VOL% (35.7-47.0); Hemoglobin 10.4 GM/DL (12.0-16.0); Immature Granulocytes % 0.6 %; Immature Granulocytes Absolute 0.07 #; Lymphocytes # 1.9 10*3/uL (1.4-4.0); Lymphocytes % 17.8 % (21.3-54.2); Mean Corpuscular Hemoglobin 24 PG (27-34); Mean Corpuscular Volume 76.3 FL (87-102); Mean Platelet Volume 8.8 FL (9.6-12.0); Monocytes # 1.2 10*3/uL (0.11-0.8); Monocytes % 11.1 % (1.7-12.7); Neutrophils # 7.4 10*3/uL (1.4-7.4); Neutrophils % 68.3 % (38.7-73.9); Platelet Count 464 T/CUMM (130-400); Red Blood Count 4.39 MC/CUMM (3.8-5.5); Red Cell Distribution Width 15.1 % (9.3-17.3); White Blood Count 10.9 T/CUMM (4-12)
[2017-06-11] MEDS: metroNIDAZOLE INJ 500 MG in PREMIX 1 EACH IV SCH ×3 (05:37→20:20)
[2017-06-11 05:46] LABS: Albumin 2.2 G/DL (3.4-5.0); Bilirubin,Total 0.5 MG/DL (0.2-1.0); Calcium 8.2 MG/DL (8.5-10.1); Magnesium 2.1 MG/DL (1.8-2.4); Osmolality,Calculated 281.1 MOS/KG (273-304); Potassium 3.4 MMOL/L (3.5-5.1); Total Protein 5.8 G/DL (6.4-8.3)
[2017-06-11] MEDS ORDERED: MAGNESIUM CITRATE 300 ML BOTTLE PO ONE (06:00)
[2017-06-11] MEDS: ONDANSETRON 4 MG/2 ML VIAL IV PRN (07:06)
[2017-06-11] MEDS: OXYBUTYNIN XL 10 MG TABLET PO SCH (08:19)
[2017-06-11] MEDS: ALPRAZolam 0.5 MG TABLET PO SCH ×3 (08:20→21:32)
[2017-06-11] MEDS: PANTOPRAZOLE 40 MG VIAL IV SCH (09:04)
--- NOTE | 2017-06-11 11:35 | History and Physical Update ---
History and Physical Update - History and Physical H&P was reviewed, the patient examined and there: are no changes in the patients condition since last H&P was completed. - Physical Exam Mental Status: alert and oriented Heart: regular rate and rhythm Lung: clear to auscultation Abdomen: within normal limits Vitals: within normal limits
[2017-06-11] MEDS ORDERED: PROPOFOL 200 MG/20 ML VIAL IV ONE (11:36)
[2017-06-11] MEDS ORDERED: LIDOCAINE 1% 5 ML VIAL ONE (11:36)
[2017-06-11] MEDS: SODIUM CHLORIDE 0.9% 1,000 ML IV SCH (11:47)
--- NOTE | 2017-06-11 12:01 | Anesthesia Post-Op ---
Anesthesia Post OP - Post Ansesthetic Evaluation Patient seen in post op: Yes Resp: within normal limits CV: within normal limits Mental: within normal limits Temp: within normal limits [id number]: within normal limits Nausea and Vomiting: within normal limits Pain: within normal limits
--- NOTE | 2017-06-11 12:15 | Operative Note ---
Date of procedure: 06/11/17 Pre-op diagnosis: Blood in stool, colon mass on CT Procedure: Procedure note: Colonoscopy with biopsies Physician: Dr. Kurtis Wolff Brief clinical abstract: 51-year-old female is admitted with vague lower abdominal discomfort, recent bleeding and 35 pound weight loss. She had CT with mass evident and sigmoid colon with also colovesical fistula. She has never had colonoscopy. Endoscopic findings: After informed consent was obtained, the patient was placed in the left lateral decubitus position. Digital rectal exam was performed with no palpable abnormalities felt. Pediatric videocolonoscope was inserted into the rectum and advanced to the mid sigmoid colon around 25 cm above the dentate line. There was a mass noted occupying 50-70% of the luminal circumference at this level and extending for approximately 10 cm length up into the descending colon. It was fairly easy to pass around this with no obvious obstructive effect. The mass was friable. Multiple biopsies were obtained from it for pathologic examination. The endoscope was advanced on to the cecum. Bowel prep was of good quality. Withdrawal time was over 6 minutes duration. In the base of the cecum there was an approximately 1 cm diameter polyp which was removed with snare using blended current. This was placed in a separate specimen bottle from the sigmoid colon mass biopsies. Distal to this no other polyps were seen. There were scattered diverticuli in the ascending as well as left colon. The endoscope was withdrawn in the rectum with retroflex view showing no abnormalities. The endoscope was removed. She appeared to tolerate the procedure well. Impression: #1 left colon mass consistent with adenocarcinoma #2 cecal polyp #3 diverticulosis coli Plan: Serum CEA level. Discuss with Dr. Hughes about surgery. She will also need oncology evaluation. F F Anesthesia: MAC Surgeon / Physician: Joshua Wolff Estimated blood loss: minimal Specimens: other (Sigmoid colon mass) Condition: stable Disposition: post procedure unit Results - Labs CBC & BMP: 06/11/17 05:04 06/11/17 05:04 Discharge Plan - Discharge Medications No Action Ferrous Sulfate Tab [Feosol Original Tab] 325 mg PO DAILY Amoxicillin/Potassium Clav [Amox Tr-K Clv 500-125 mg Tab] 1 each PO BID W/ MEALS Lactobacillus Acidophilus [Acidophilus Lactobacilli] 1 each PO DAILY Oxybutynin Xl [Ditropan Xl] 10 mg PO DAILY - Follow Up or Referral - Forms/Instructions
--- NOTE | 2017-06-11 12:30 | General Surgery Progress Note ---
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 Continue antibiotics. This is a complex oncology case and I have recommended referral to the patient and her family. I will discuss this further with them as far as where they would like to go but options would include [facility] and [facility] in [place]. The patient has a CEA level of 7.3 and she needs a CT scan of the abdomen with IV contrast to better evaluate for any metastatic lesions in the liver. This can be done over the weekend. Current Visit: Yes Subjective Patient reports: Present: no new complaints, feels better, pain is less, afebrile Narrative: Colonoscopy results reviewed and discussed with Dr. Wolff. Patient has a large mass in the sigmoid colon extending into the descending colon. There is no obvious obstruction present and there is no bleeding. Exam - Constitutional Vitals: Period Temp Pulse Resp BP Sys/Ng Pulse Ox Last 24 Hr 97.7 F-98.9 F 79-97 16-22 137-167/71-92 93-96 General appearance: no acute distress, over weight - Head Head exam: Present: normal inspection, normocephalic - Eye Eye exam: Present: EOMI Pupils: Present: MERRY - ENT ENT exam: Present: normal exam Mouth exam: Present: normal external inspection, normal voice - Neck Neck exam: Present: normal inspection. Absent: trachea midline, lymphadenopathy - Respiratory Respiratory exam: Present: clear to auscultation bilaterally. Absent: accessory muscle use, chest wall tenderness - Cardiovascular Cardiovascular exam: Present: RRR. Absent: systolic murmur, tachycardia - GI/Abdominal GI/Abdominal exam: Present: mass, soft - Extremities Exam Extremities exam: Present: normal inspection, normal capillary refill - Back Exam Back exam: Present: normal inspection - Neurological Exam Neurological exam: Present: alert, oriented X3 Speech: Present: normal - Skin Skin exam: Present: normal color, warm Results - Labs CBC & BMP: 06/11/17 05:04 06/11/17 05:04 - Diagnostic Findings Procedure: CT Abdomen and Pelvis: image reviewed by me, report reviewed by me ( Large mass in the pelvis consistent with malignancy. No metastatic lesions in the liver, However no IV contrast was used.)
[2017-06-11] MEDS ORDERED: ALPRAZolam 0.5 MG TABLET PO ONE (12:48)
--- NOTE | 2017-06-11 14:03 | Event Note ---
Discussed colonoscopy findings with patient after recovery. Dr. Hughes is coordinating plans for surgery with probable referral to tertiary colorectal surgeon. Nothing further to add from GI standpoint for now. I will sign off. Dr. Castillo is extrusion supervisor for GI this weekend if needed.
--- NOTE | 2017-06-11 16:09 | Hospitalist Progress Note ---
Hospitalist: Subjective Interval history: 51-year-old female with sigmoid colon mass and anxiety disorder. She reports her anxiety is better today denies any abdominal pain Exam - Constitutional Vitals: Period Temp Pulse Resp BP Sys/Ng Pulse Ox Last 24 Hr 97.7 F-98.9 F 79-97 16-22 135-167/71-94 93-98 Exam: General: [No Acute Distress] HEENT: [Normocephalic, atraumatic, Extra ocular movements intact] Neck: [Supple, No JVD] Chest: [Clear to auscultation B/L] CV: [S1 + S2 audible without murmur, gallop or rub] Abd: [Obese, soft, lower abdominal mass, NT, BS +] Ext: [No edema] Skin: [No purpura, bruising or rash] Rheumatologic: [No Joint deformities] Neurologic: [Strength 5/5 all extremities, no gross sensory deficits] Results - Labs CBC & BMP: 06/11/17 05:04 06/11/17 05:04 - Impressions - Impressions Large sigmoid mass with colovesical fistula Status: Acute Assessment and plan: She will be getting a CT scan of the abdomen with contrast over the weekend. May need referral to tertiary care center. GI has signed off. Current Visit: Yes Anxiety disorder and panic attacks Status: Acute Assessment and plan: Continue Xanax Current Visit: Yes
[2017-06-11] MEDS: cefTRIAXone 1,000 MG in SODIUM CHLORIDE 0.9% 100 ML IV SCH (18:18)
[2017-06-11] MEDS: MICONAZOLE 2% VAG CREAM 45 GM TUBE VAG SCH (20:21)
[2017-06-12] MEDS: metroNIDAZOLE INJ 500 MG in PREMIX 1 EACH IV SCH ×3 (01:30→13:47)
[2017-06-12] MEDS: SODIUM CHLORIDE 0.9% 1,000 ML IV SCH ×2 (01:31→14:14)
[2017-06-12] MEDS: ALPRAZolam 0.5 MG TABLET PO SCH ×2 (08:30→14:14)
[2017-06-12] MEDS: PANTOPRAZOLE 40 MG VIAL IV SCH (08:30)
[2017-06-12] MEDS: OXYBUTYNIN XL 10 MG TABLET PO SCH (08:33)
[2017-06-12] MEDS: ONDANSETRON 4 MG/2 ML VIAL IV PRN (10:38)
[2017-06-12 11:21] VITALS: BP 146/77
--- NOTE | 2017-06-12 14:56 | CT Report ---
Exam: CT abdomen and pelvis with intravenous contrast Exam date: 06/12/2017 at 10:56 AM Clinical History: 51-year-old female with known colonic mass Technique: Axial computed tomography images of the abdomen and pelvis with intravenous contrast. All CT scans at this facility use one or more dose reduction techniques. Automated exposure control, MA/KV adjustment per patient size (including targeted exam Square dose is matched to indication) or iterative reconstruction technique Contrast: 100 mL of Omnipaque 350 administered intravenously Comparison: June 10, 2017 Findings: Lower thorax: No acute pathologic findings at the lung bases Abdomen: Liver: Normal in size and enhancement. Focal fat along the ligamentum teres with ill-defined area of hypoenhancement involving the posterior segment of the right hepatic lobe adjacent to the caudate lobe, best demonstrated on axial image 81. Gallbladder and bile ducts: Gallbladder nondistended. Question small intraluminal densities. No ductal dilatation. Pancreas: Pancreas is normal. Spleen: Spleen is normal. Adrenals: No adrenal mass. Kidneys and ureters: Kidneys are normal in morphology, size and enhancement. No hydronephrosis. No ureteral calculus. Stomach and bowel: Large necrotic-appearing heterogeneously enhancing mass arising from the proximal sigmoid colon measuring approximately 12.0 x 6.0 cm extends transmurally through the outer serosa and likely into the adjacent mesentery anteriorly and appears to invade the roof of the urinary bladder. Mesocolonic stranding extends into midline hernia just above the symphysis into the subcutaneous fat. There is question of peripheral enhancing tract that extends inferiorly to the hernia defect within the anterior pubic soft tissues. Pelvis: Bladder: Decompressed with marked urinary bladder wall thickening containing intraluminal debris and air. Reproductive: The uterus is surgically absent Abdomen and pelvis: Intraperitoneal space: No pneumoperitoneum. No free intraperitoneal fluid Bones/joints: No acute osseous abnormality Soft tissues: No mass Vasculature: No aortic aneurysm Lymph nodes: Nonspecific shotty mesenteric, inguinal and retroperitoneal lymph nodes Impression: 1. Heterogeneously enhancing somewhat necrotic mass arising from the proximal sigmoid colon is likely unchanged in overall size and appearance. No resultant bowel obstruction. 2. 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 Findings to suggest extension of mass and/or developing fistula into the anterior pelvic soft tissues just inferior to ventral hernia defect 3. Cholelithiasis 4. Fat-containing ventral hernia with diastases of the lower rectus musculature PROCEDURE INTERPRETED AT [facility] DEPARTMENT OF RADIOLOGY Final Report Signed by: Ray Bates
--- NOTE | 2017-06-12 15:56 | Discharge Summary ---
Hospital Course - Hospital Course Hospital Course: 51 year old white female presented to the ED as a referral from Dr. Echevarria's office. Pt. saw Dr. Echevarria in clinic for abdominal pain and underwent an US that revealed 'mild dilation of the left renal pelvis could represent mild hydronephrosis. Pt. was sent over for further evaluation. Patient also reported some subjective fever, chills and weight loss. He reports a weight loss of about 15 pounds in about 3 months and about 35 pounds over 1 year. Patient denied ever having a colonoscopy. A CT scan of the abdomen was showed a large colon sigmoid mass with a possible colovesical fistula. She was admitted to the hospitalist service. Surgery and GI were consulted. Dr. Wolff from GI service saw the patient and referred the case with Dr. Hughes general surgery. Dr. Hughes ordered a CT scan of the abdomen and pelvis with contrast, which showed a large necrotic appearing heterogeneously enhancing mass arising from the proximal sigmoid colon measuring approximately 12 x 6 cm extending transmurally through the outer serosa and likely into the adjacent mesentery anteriorly and appears to invade the roof of the urinary bladder. Dr. Hughes has recommended referral to a tertiary care center either [facility] or [facility]. Patient was given these options and she chose to go to [facility]. However she has declined a transfer and stated that she has to take care of some business and would like to go to [facility] herself, either tomorrow which is Wednesday or Wednesday morning. She is stated that she would go to the emergency room and get herself admitted at [facility]. her urine culture did not show any evidence of UTI , however medically she was on Rocephin. Her pain is quite well controlled. She is being switched to ciprofloxacin for UTI prophylaxis. Patient is aware of the finding of the CT scan and understand that she is going on likely need surgery for repair of the bladder as a removal of this mass and possible chemotherapy. I discussed these possibilities with her and her Kira and they voiced understanding. Patient is not requesting to be discharged home and she stated that she will drive to [facility] to get herself admitted for further evaluation and management. Times during the discharge was about 45 minutes. I answered all the questions the patient had. Discharge instructions and prescriptions were provided. - Time spent with patient Time with patient DS: Greater than 30 minutes Discharge Plan - Discharge Data Condition at Discharge: Stable Discharge Diet: advance to your usual diet Activity: resume usual activities as tolerated Hygiene: no restrictions Weight Bearing at Discharge: full weight bearing Driving: no restrictions Contact your physician if you experience:: fever over 101, Difficulty voiding, Nausea/Vomiting, pain uncontrolled by pain medications - Discharge Medications New ALPRAZolam [Xanax] 0.5 mg PO TID #90 tablet Docusate Sodium Cap [Colace Cap] 100 mg PO BID PRN capsule PRN Reason: Constipation Ciprofloxacin Tab [Cipro Tab] 500 mg PO Q12HR #14 tablet Continue Ferrous Sulfate Tab [Feosol Original Tab] 325 mg PO DAILY Lactobacillus Acidophilus [Acidophilus Lactobacilli] 1 each PO DAILY Oxybutynin Xl [Ditropan Xl] 10 mg PO DAILY Discontinued Amoxicillin/Potassium Clav [Amox Tr-K Clv 500-125 mg Tab] 1 each PO BID W/ MEALS - Follow Up or Referral - Forms/Instructions Exam - Constitutional Vitals: Period Temp Pulse Resp BP Sys/Ng Pulse Ox Last 24 Hr 97.5 F-98.5 F 65-87 14-20 126-146/68-81 93-97 Exam: General: [No Acute Distress] HEENT: [Normocephalic, atraumatic, Extra ocular movements intact] Neck: [Supple, No JVD] Chest: [Clear to auscultation B/L] CV: [S1 + S2 audible without murmur, gallop or rub] Abd: [soft, lower abdominal mass, BS +] Ext: [No edema] Skin: [No purpura, bruising or rash] Rheumatologic: [No Joint deformities] Neurologic: [Strength 5/5 all extremities, no gross sensory deficits] DS: Provider Date of admission: 06/09/17 15:46 Primary care physician: . No PCP Attending physician on admission: Joby Rubio MD Consults: 06/09/17 17:45 Consult to Physician [CONS] Routine Comment: diverticulitis vs neoplasm Consulting Provider: Joshua Wolff 06/09/17 18:01 Consult to Physician [CONS] Routine Comment: mass on sigmoid colon Consulting Provider: Jack Hughes Person Notified: aware Date Notified: 06/10/17 Time Notified: 08:43 06/09/17 18:13 Consult to Dietitian [CONS] Routine Reason for Dietitian: Other Discharging clinician: James Orourke MD
[2017-06-12] MEDS ORDERED: CIPROFLOXACIN 500 MG TABLET PO SCH (21:00)
--- NOTE | 2017-06-15 13:22 | Pathology Report from [facility] ---
[facility] [place] # : [id number] PATIENT NAME : Marie Garcia ORDERING DR : BERTRAND ADAMS MD CLINICAL HX: LLQ abdominal mass POST-OP DX: #1 Cecum polyp #2 Descending colon mass SPECIMEN INFO: #1 Cecum polyp #2 Descending colon mass biopsy GROSS DESCRIPTION: #1 Received in formalin labeled with the patients name MARIE GARCIA and #1 consists of two red-leo tissue fragments measuring 0.5 x 0.4 cm collectively. Submitted in cassette #1.#2 Received in formalin labeled with the patients name MARIE GARCIA and #2 consists of a 0.4 x 0.4 cm aggregate of leo tissue. Submitted in cassette #2. 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 A more serious invasive lesion cannot be ruled out. COLLECTED DATE: 06/11/2017 [facility] REPORT DATE: 06/15/2017 ELECTRONICALLY SIGNED BY: Belkis Chatterjee III, M.D. 06/15/2017 - 10:09:36 [facility]ENTERLindsey
== END 2017-06-12 16:44 | disposition home or self-care (01) | DRG 699 ==
LOC: N.ED 14:30 → SUATTDRO 15:46 → N.EDINP 15:46 → N.5E 17:45
PROVIDERS: ADMIT Internal Medicine; ATTEND Hospitalist